=== PATIENT | female | born 1965 | race Caucasian/White ===

== ENCOUNTER 2017-11-09 10:12 | Emergency (ER) | payer BC ==
[2017-11-09 11:19] VITALS: BP 139/63
--- NOTE | 2017-11-09 11:33 | UC ---
Back Pain HPI - HPI Summary HPI Summary: Patient presents with a past medical history of Non-Hodgkin lymphoma, hypogammaglobelemia, and know left sided hydronephrosis. She is currently visiting from [place]. She presents today with left sided flank pain, and fever onset 1 days. Denies chills, nausea, vomiting, abdominal pain, or dysuria - History of Current Complaint Chief Complaint: UCGeneralIllness Stated Complaint: BACK PAIN Time Seen by Provider: 11/09/17 11:05 Hx Obtained From: Patient Hx Last Menstrual Period: No Menes d/t Chemo ?: No Onset/Duration: Gradual Onset, Lasting Days Timing: Constant Severity Initially: Moderate Severity Currently: Moderate Pain Intensity: 4 Character: Dull, Aching Aggravating Factor(s): Nothing Alleviating Factor(s): Nothing Associated Signs And Symptoms: Positive: Negative - Risk Factors AAA Risk Factors: Negative TAD Risk Factors: Negative Cauda Equina Risk Factors: Negative Epidural Abscess Risk Factors: Negative - Allergies/Home Medications Allergies/Adverse Reactions: Allergies Allergy/AdvReac Type Severity Reaction Status Date / Time amoxicillin Allergy Hives Verified 11/09/17 11:05 sulfamethoxazole Allergy Hives Verified 11/09/17 11:05 [From Bactrim] trimethoprim [From Bactrim] Allergy Hives Verified 11/09/17 11:05 Home Medications: Home Medications Acetaminophen [Acetaminophen Extra Strength] 2 tab PO Q6HR 11/09/17 [History Confirmed 11/09/17] Albuterol HFA INHALER* [Ventolin HFA Inhaler*] 2 puff INH Q4HR PRN 11/09/17 [ History Confirmed 11/09/17] Aspirin EC TAB* [Ecotrin EC Low Dose 81 MG*] 1 tab PO DAILY 11/09/17 [History Confirmed 11/09/17] Beclomethasone 80 MCG MDI(NF) [Qvar 80 MCG MDI(NF)] 2 puff INH BID 11/09/17 [ History Confirmed 11/09/17] Carvedilol TAB* [Coreg TAB*] 3.125 mg PO BID 11/09/17 [History Confirmed ] Dexlansoprazole [Dexilant] 60 mg PO DAILY 11/09/17 [History Confirmed 11/09/17] Hizentra 1 inj SUBCUT WEEKLY 11/09/17 [History Confirmed 11/09/17] Montelukast Sodium TAB* [Singulair 10 MG TAB*] 10 mg PO DAILY 11/09/17 [History Confirmed 11/09/17] Olmesartan Medoxomil [Benicar] 10 mg PO DAILY 11/09/17 [History Confirmed ] Rosuvastatin Calcium [Crestor] 5 mg PO DAILY 11/09/17 [History Confirmed ] PMH/Surg Hx/FS Hx/Imm Hx Previously Healthy: Yes Endocrine History: Dyslipidemia Cardiovascular History: Hypertension - renal tumor Respiratory History: Asthma Other GI/ History: left sided hyronephrosis, hypogammaglobilemia. - Surgical History Surgical History: Yes Surgery Procedure, Year, and Place: Scar tissue removed left kidney area x 3. - Family History Known Family History: Positive: Other - bladder cancer - Social History Occupation: Employed Full-time Lives: Alone Alcohol Use: None Substance Use Type: None Smoking Status (MU): Never Smoked Tobacco Review of Systems Constitutional: Negative Skin: Negative Eyes: Negative ENT: Negative Respiratory: Negative Cardiovascular: Negative Gastrointestinal: Negative Genitourinary: Negative, Other - left flank pain Motor: Negative Neurovascular: Negative Musculoskeletal: Negative Neurological: Negative Psychological: Negative Is Patient Immunocompromised?: No All Other Systems Reviewed And Are Negative: Yes Physical Exam Triage Information Reviewed: Yes Appearance: Well-Appearing Vital Signs: Initial Vital Signs Temp 101.4 F 11/09/17 11:09 Pulse 102 11/09/17 11:09 Resp 16 11/09/17 11:09 BP 139/63 11/09/17 11:09 Pulse Ox 99 11/09/17 11:09 Eye Exam: Normal ENT Exam: Normal Neck exam: Normal Respiratory Exam: Normal Cardiovascular Exam: Normal Abdominal Exam: Normal Skin Exam: Normal Back Pain Course/Dx - Course Course Of Treatment: Patient presents withmultiple co-morbities see PMH. She recently drove from [place] to [place] to ep her parents. She presents with complaints of fever, and flank pain. VSS reveal eleveted pulse, and fever findings consistent with SIRS, and also patient is at risk for PE. I do not the the ability to work this patient up in the walk in and was sent directly to the ER. Report called to Jennifer. Patient stable at discharge. - Differential Dx/Diagnosis Differential Diagnosis/HQI/PQRI: Other - fever flank pain Provider Diagnoses: fever. flank pain Discharge - Sign-Out/Discharge Documenting (check all that apply): Discharge/Admit/Transfer - Discharge Plan Condition: Stable Disposition: HOME Patient Education Materials: Fever in Adults (ED), Flank Pain (ED) Referrals: No Primary Care Phys,NOPCP [Primary Care Provider] - Additional Instructions: I recommend she to directly to the ER. - Billing Disposition and Condition Condition: STABLE Disposition: HOME
== END 2017-11-09 11:30 | disposition home or self-care (01) ==
LOC: UCEAST 10:12
DX: M54.9 Dorsalgia, unspecified (principal); R50.9 Fever, unspecified; E78.5 Hyperlipidemia, unspecified; I10 Essential (primary) hypertension; J45.909 Unspecified asthma, uncomplicated; D80.1 Nonfamilial hypogammaglobulinemia; Z85.51 Personal history of malignant neoplasm of bladder; Z88.0 Allergy status to penicillin; Z88.2 Allergy status to sulfonamides
CPT/HCPCS: 99202; G0463

== ENCOUNTER 2017-11-09 11:49 | Emergency (ER) | payer BC ==
--- NOTE | 2017-11-09 12:41 | RAD ---
INDICATION: Left flank pain. History of lymphoma. History of renal tumor. COMPARISON: None TECHNIQUE: Noncontrast axial source images were acquired from the level hemidiaphragms to the symphysis pubis as part of CT imaging for renal stone. Lung bases: There is nodular pleural-based infiltrative change left lung base. There are emphysematous changes. Suggest correlation with prior radiographs and/or a follow-up chest x-ray. Liver: The liver is enlarged. Noncontrast imaging shows no evidence of a hepatic mass or ductal dilatation. Gallbladder: There are no calcified gallstones. There is no evidence of wall thickening or pericholecystic fluid.. Spleen: The spleen is normal in size. The noncontrast CT appearance is normal. Pancreas: Noncontrast imaging shows no pancreatic mass or ductal dilitation. Evaluation is limited without oral and intravenous contrast Adrenal glands: No masses are identified. Kidneys/Bladder: There is no definitive CT evidence of nephrolithiasis. There is moderate left-sided hydronephrosis, however. There is a size discrepancy between the 2 kidneys with the left kidney being smaller than the right. The right kidney may be mildly hypertrophied. Adenopathy: There is no evidence of intraperitoneal or retroperitoneal adenopathy. Evaluation is limited without oral or contrast. Fluid collections: There water density masses in the minor pelvis bilaterally. These appear contiguous with the S1-S2 sacral foramina bilaterally. These are likely large perineural cysts and should be reviewed in conjunction with any prior external imaging. Vessels: The aorta and iliac vessels are normal in caliber. There are no significant atherosclerotic changes. The IVC appears normal Pelvic organs: The uterus and adnexa appear normal. The uterus is retroflexed GI tract: There are no specific CT abnormalities of the GI tract on noncontrast evaluation. There is moderate retained stool throughout the colon. Soft tissues: No soft tissue abnormalities of the extraperitoneal abdomen or pelvis are identified. Osseous structures: There are no acute osseous findings. There is mild levoscoliosis. IMPRESSION: 1. Nonspecific, pleural-based areas of nodularity left lung base. Suggest follow-up. 2. Hepatomegaly. 3. Mildly atrophic left kidney. Moderate left-sided hydronephrosis. Hypertrophied right kidney No CT evidence of urolithiasis. Suggest correlation with prior renal history 4. Presumed perineural cysts. Suggest correlation with prior imaging. 5. Retained stool.
[2017-11-09 12:43] LABS: ABS Basophils 0 10^3/ul (0-0.2); ABS Eosinophils 0 10^3/ul (0-0.6); ABS Lymphocytes 1.9 10^3/ul (1.0-4.8); ABS Monocytes 1.1 10^3/ul (0-0.8); ABS Neutrophils 10.1 10^3/ul (1.5-7.7); ABS Nucleated RBC 0 10^3/ul; Eosinophil % 0.4 % (0-6); Hematocrit 37 % (35-47); Hemoglobin 12.3 g/dl (12.0-16.0); Lymphocyte % 14.6 % (25-47); Mean Corpuscular HGB Conc 33 g/dl (31-36); Mean Corpuscular Hemoglobin 29 pg (27-31); Mean Corpuscular Volume 87 fL (80-97); Mean Platelet Volume 7.2 um3 (7.4-10.4); Nucleated Red Blood Cells % 0.1; Platelet Count 273 10^3/ul (150-450); Red Blood Count 4.27 10^6/ul (4.0-5.4); Red Cell Distribution Width 14 % (10.5-15); White Blood Count 13.2 10^3/ul (3.5-10.8)
[2017-11-09 12:51] LABS: INR 1.01 (0.77-1.02)
[2017-11-09 13:36] LABS: Urine Appearance Clear; Urine Blood 1+ (Negative); Urine Color Straw; Urine Ketones Negative (Negative); Urine Protein Negative (Negative); Urine Specific Gravity 1.004 (1.010-1.030); Urine Urobilinogen Negative (Negative)
[2017-11-09 13:50] VITALS: BP 134/79
[2017-11-09] MEDS ORDERED: Levofloxacin TAB* 500 MG PO ONE (14:10)
--- NOTE | 2017-11-09 14:15 | ED ---
Xin Collazo Gabriel, scribed for Galo Cai on 11/09/17 at 1208 . Back Pain - HPI Summary HPI Summary: This patient is a 52 year old F presenting to [facility] accompanied by her father with a chief complaint of left flank pain that began at 0100 this morning. The patient rates the pain 5/10 in severity. Patient reports fever. Patient denies hematuria and rash. Pt lives in [place] and was seen there 4 weeks ago for possible kidney stone. There was blood in her urine but CT showed no stone. - History of Current Complaint Chief Complaint: EDFlankPain Stated Complaint: FLANK/BACK PAIN/FEVER Time Seen by Provider: 11/09/17 12:00 Hx Obtained From: Patient Hx Last Menstrual Period: No Menes d/t Chemo Onset/Duration: Lasting Hours, Still Present Onset/Duration: Still Present Timing: Constant Back Pain Location: Is Discrete @ - l flank Severity Initially: Moderate Severity Currently: Moderate Pain Intensity: 5 Pain Scale Used: 0-10 Numeric Associated Signs And Symptoms: Positive: Negative - hematuria, rash,, Fever - Allergies/Home Medications Allergies/Adverse Reactions: Allergies Allergy/AdvReac Type Severity Reaction Status Date / Time amoxicillin Allergy Hives Verified 11/09/17 11:52 sulfamethoxazole Allergy Hives Verified 11/09/17 11:52 [From Bactrim] trimethoprim [From Bactrim] Allergy Hives Verified 11/09/17 11:52 Home Medications: Home Medications Dexlansoprazole (NF) [Dexilant (NF)] 60 mg PO DAILY 11/09/17 [History Confirmed 11/09/17] Olmesartan (NF) [Benicar (NF)] 10 mg PO DAILY 11/09/17 [History Confirmed ] Rosuvastatin (NF) [Crestor (NF)] 5 mg PO DAILY 11/09/17 [History Confirmed 11/09] PMH/Surg Hx/FS Hx/Imm Hx Cardiovascular History: Reports: Hx Hypertension Respiratory History: Reports: Hx Asthma Denies: Hx Chronic Obstructive Pulmonary Disease (COPD), Hx Cystic Fibrosis GI History: Denies: Hx Gastrointestinal Bleed, Hx Hiatal Hernia History: Denies: Hx Benign Prostatic Hyperplasia Sensory History: Reports: Hx Contacts or Glasses Opthamlomology History: Reports: Hx Contacts or Glasses Neurological History: Denies: Hx CVA, Hx Dementia - Cancer History Cancer Type, Location and Year: Non-hodgkins Lymphoma - remission 2003; Tumor in kidney area. - Surgical History Surgery Procedure, Year, and Place: Scar tissue removed left kidney area x 3. Infectious Disease History: No Infectious Disease History: Denies: Traveled Outside the US in Last 30 Days - Family History Known Family History: Positive: Hypertension, Other - bladder cancer - Social History Lives: With Family Alcohol Use: None Substance Use Type: Reports: None Smoking Status (MU): Never Smoked Tobacco Review of Systems Positive: Fever Positive: flank pain. Negative: hematuria Negative: Rash All Other Systems Reviewed And Are Negative: Yes Physical Exam - Summary Physical Exam Summary: Appearance: Well appearing, no pain distress Skin: warm, dry, reflects adequate perfusion Head/face: normal Eyes: EOMI, CLAUDIA ENT: normal Neck: supple, non-tender Respiratory: CTA, breath sounds present Cardiovascular: RRR, pulses symmetrical ~ Abdomen: non-tender, soft Back: mild TTP in the left flank Bowel: present Musculoskeletal: normal, strength/ROM intact Neuro: normal, sensory motor intact, A&Ox3 Triage Information Reviewed: Yes Vital Signs On Initial Exam: Initial Vitals Temp Pulse Resp BP Pulse Ox 98.1 F 98 14 135/79 100 11/09/17 11:52 11/09/17 11:52 11/09/17 11:52 11/09/17 11:52 11/09/17 11:52 Vital Signs Reviewed: Yes Diagnostics - Vital Signs Vital Signs Temp Pulse Resp BP Pulse Ox 11/09/17 11:52 98.1 F 98 14 135/79 100 - Laboratory Lab Results: Lab Results 11/09/17 11/09/17 11/09/17 Range/Units 12:33 12:33 12:33 WBC 13.2 H (3.5-10.8) 10^3/ul RBC 4.27 (4.0-5.4) 10^6/ul Hgb 12.3 (12.0-16.0) g/dl Hct 37 (35-47) % MCV 87 (80-97) fL MCH 29 (27-31) pg MCHC 33 (31-36) g/dl RDW 14 (10.5-15) % Plt Count 273 (150-450) 10^3/ul MPV 7.2 L (7.4-10.4) um3 Neut % (Auto) 76.6 (38-83) % Lymph % (Auto) 14.6 L (25-47) % Pettis % (Auto) 8.2 H (0-7) % Eos % (Auto) 0.4 (0-6) % Baso % (Auto) 0.2 (0-2) % Absolute Neuts (auto) 10.1 H (1.5-7.7) 10^3/ul Absolute Lymphs (auto) 1.9 (1.0-4.8) 10^3/ul Absolute Monos (auto) 1.1 H (0-0.8) 10^3/ul Absolute Eos (auto) 0 (0-0.6) 10^3/ul Absolute Basos (auto) 0 (0-0.2) 10^3/ul Absolute Nucleated RBC 0 10^3/ul Nucleated RBC % 0.1 INR (Anticoag Therapy) 1.01 (0.77-1.02) APTT 26.4 (26.0-36.3) seconds Sodium 139 (139-145) mmol/L Potassium 4.3 (3.5-5.0) mmol/L Chloride 102 (101-111) mmol/L Carbon Dioxide 28 (22-32) mmol/L Anion Gap 9 (2-11) mmol/L BUN 15 (6-24) mg/dL Creatinine 0.58 (0.51-0.95) mg/dL Est GFR ( Amer) 141.5 (>60) Est GFR (Non-Af Amer) 110.0 (>60) BUN/Creatinine Ratio 25.9 H (8-20) Glucose 89 (70-100) mg/dL Calcium 9.3 (8.6-10.3) mg/dL Total Bilirubin 0.50 (0.2-1.0) mg/dL AST 21 (13-39) U/L ALT 17 (7-52) U/L Alkaline Phosphatase 94 (34-104) U/L Total Protein 7.7 (6.4-8.9) g/dL Albumin 4.2 (3.2-5.2) g/dL Globulin 3.5 (2-4) g/dL Albumin/Globulin Ratio 1.2 (1-3) Lipase 39 (11.0-82.0) U/L Beta HCG, Quant 3.54 mIU/mL Urine Color Urine Appearance Urine pH (5-9) Ur Specific [place] (1.010-1.030) Urine Protein (Negative) Urine Ketones (Negative) Urine Blood (Negative) Urine Nitrate (Negative) Urine Bilirubin (Negative) Urine Urobilinogen (Negative) Ur Leukocyte Esterase (Negative) Urine WBC (Auto) (Absent) Urine RBC (Auto) (Absent) Urine Bacteria (Absent) Urine Glucose (Negative) 11/09/17 Range/Units 13:21 WBC (3.5-10.8) 10^3/ul RBC (4.0-5.4) 10^6/ul Hgb (12.0-16.0) g/dl Hct (35-47) % MCV (80-97) fL MCH (27-31) pg MCHC (31-36) g/dl RDW (10.5-15) % Plt Count (150-450) 10^3/ul MPV (7.4-10.4) um3 Neut % (Auto) (38-83) % Lymph % (Auto) (25-47) % Pettis % (Auto) (0-7) % Eos % (Auto) (0-6) % Baso % (Auto) (0-2) % Absolute Neuts (auto) (1.5-7.7) 10^3/ul Absolute Lymphs (auto) (1.0-4.8) 10^3/ul Absolute Monos (auto) (0-0.8) 10^3/ul Absolute Eos (auto) (0-0.6) 10^3/ul Absolute Basos (auto) (0-0.2) 10^3/ul Absolute Nucleated RBC 10^3/ul Nucleated RBC % INR (Anticoag Therapy) (0.77-1.02) APTT (26.0-36.3) seconds Sodium (139-145) mmol/L Potassium (3.5-5.0) mmol/L Chloride (101-111) mmol/L Carbon Dioxide (22-32) mmol/L Anion Gap (2-11) mmol/L BUN (6-24) mg/dL Creatinine (0.51-0.95) mg/dL Est GFR ( Amer) (>60) Est GFR (Non-Af Amer) (>60) BUN/Creatinine Ratio (8-20) Glucose (70-100) mg/dL Calcium (8.6-10.3) mg/dL Total Bilirubin (0.2-1.0) mg/dL AST (13-39) U/L ALT (7-52) U/L Alkaline Phosphatase (34-104) U/L Total Protein (6.4-8.9) g/dL Albumin (3.2-5.2) g/dL Globulin (2-4) g/dL Albumin/Globulin Ratio (1-3) Lipase (11.0-82.0) U/L Beta HCG, Quant mIU/mL Urine Color Straw Urine Appearance Clear Urine pH 7.0 (5-9) Ur Specific [place] 1.004 L (1.010-1.030) Urine Protein Negative (Negative) Urine Ketones Negative (Negative) Urine Blood 1+ A (Negative) Urine Nitrate Negative (Negative) Urine Bilirubin Negative (Negative) Urine Urobilinogen Negative (Negative) Ur Leukocyte Esterase 3+ A (Negative) Urine WBC (Auto) 2+(11-20/hpf) A (Absent) Urine RBC (Auto) Trace(0-2/hpf) (Absent) Urine Bacteria Absent (Absent) Urine Glucose Negative (Negative) Result Diagrams: 11/09/17 12:33 11/09/17 12:33 Lab Statement: Any lab studies that have been ordered have been reviewed, and results considered in the medical decision making process. - CT CT ABD/Pelvis CT Interpretation Completed By: Radiologist - 1. Nonspecific, pleural-based areas of nodularity left lung base. Suggest follow-up. 2. Hepatomegaly. 3. Mildly atrophic left kidney. Moderate left-sided hydronephrosis. Hypertrophied right kidney No CT evidence of urolithiasis. Suggest correlation with prior renal history 4. Presumed perineural cysts. Suggest correlation with prior imaging. 5. Retained stool. ED physician has reviewed this radiology report. Back Pain Course/Dx - Course Assessment/Plan: This patient is a 52 year old F presenting to [facility] accompanied by her father with a chief complaint of left flank pain that began at 0100 this morning. The patient rates the pain 5/10 in severity. Patient reports fever. Patient denies hematuria and rash. Pt lives in [place] and was seen there 4 weeks ago for possible kidney stone. There was blood in her urine but CT showed no stone. CT ABD/Pelvis reveals, per radiologist, 1. Nonspecific, pleural-based areas of nodularity left lung base. Suggest follow- up. 2. Hepatomegaly. 3. Mildly atrophic left kidney. Moderate left-sided hydronephrosis. Hypertrophied right. kidney No CT evidence of urolithiasis. Suggest correlation with prior renal history. 4. Presumed perineural cysts. Suggest correlation with prior imaging. 5. Retained stool. Blood work obtained. UA was positive for UTI. In the ED course the patient was given levaquin. Patient will be discharged with prescription for levaquin and follow up from urology. The patient is agreeable with this plan. - Diagnoses Differential Diagnosis/HQI/PQRI: Positive: Renal Colic, Strain, Other - uti Provider Diagnoses: UTI (urinary tract infection) Discharge - Sign-Out/Discharge Documenting (check all that apply): Discharge/Admit/Transfer - Discharge Plan Condition: Stable Disposition: HOME Prescriptions: Ibuprofen TAB* [Motrin TAB* 600 MG] 600 mg PO Q8H PRN #15 tab PRN Reason: Pain Levofloxacin TAB* [Levaquin TAB*] 500 mg PO DAILY #4 tab Patient Education Materials: Urinary Tract Infection in Women (DC) Additional Instructions: Please see your urologist in [place] [facility]. RETURN TO THE ER FOR ANY NEW OR WORSENING SYMPTOMS - Billing Disposition and Condition Condition: STABLE Disposition: HOME The documentation as recorded by the Xin don Gabriel accurately reflects the service I personally performed and the decisions made by , Galo Cai.
[2017-11-09] MEDS ORDERED: Acetaminophen TAB* 325 MG PO ONE (14:20)
[2017-11-09] MEDS ORDERED: Acetaminophen TAB* 325 MG ONE (14:20)
== END 2017-11-09 14:24 | disposition home or self-care (01) ==
LOC: ED 11:49
DX: N39.0 Urinary tract infection, site not specified (principal); N13.30 Unspecified hydronephrosis; N26.1 Atrophy of kidney (terminal); R91.1 Solitary pulmonary nodule; R16.0 Hepatomegaly, not elsewhere classified; Z88.3 Allergy status to other anti-infective agents; Z88.0 Allergy status to penicillin
CPT/HCPCS: 36415; 74176; 80053; 81003; 81015; 83690; 84702; 85025; 85610; 85730; 87086; 99283; A9270-GY

== ENCOUNTER 2018-12-01 09:02 | Emergency (ER) | payer BC ==
[2018-12-01 09:23] LABS: ABS Lymphocytes 1.3 10^3/ul (1.0-4.8); ABS Monocytes 0.7 10^3/ul (0-0.8); ABS Neutrophils 4.5 10^3/ul (1.5-7.7); Eosinophil % 0.6 %; Hematocrit 39 % (35-47); Hemoglobin 13.3 g/dL (12.0-16.0); Lymphocyte % 19.8 %; Mean Corpuscular HGB Conc 34 g/dL (31-36); Mean Corpuscular Hemoglobin 31 pg (27-31); Mean Corpuscular Volume 90 fL (80-97); Platelet Count 190 10^3/uL (150-450); Red Blood Count 4.36 10^6 /uL (3.70-4.87); Red Cell Distribution Width 13 % (10-15); White Blood Count 6.5 10^3/uL (3.5-10.8)
--- NOTE | 2018-12-01 09:25 | ED ---
Respiratory - HPI Summary HPI Summary: Patient is a 53-year-old female presenting to the ED with concern for pneumonia. She states she has an immune deficiency and has recurrent pneumonias. She had a fever of approximately 101 yesterday, but denies fevers currently. She denies any sweats or chills. She is endorsing a right-sided mid back pain/tenderness which is consistent with her previous pneumonias. She does endorse cough with production over the past few days, this is mild and clear mucus. - History of Current Complaint Chief Complaint: EDFever Stated Complaint: FEVER, FLANK PAIN Time Seen by Provider: 12/01/18 09:09 Hx Obtained From: Patient Onset/Duration: Sudden Onset Timing: Constant Initial Severity: Mild Current Severity: None Pain Intensity: 4 Character: Cough (Productive) Sputum Amount: Scant Sputum Color: Clear Aggravating Factor(s): URI Alleviating Factor(s): Nothing Associated Signs and Symptoms: Negative - Risk Factors Status Asthmaticus Risk Factors: Negative Pulmonary Embolism Risk Factors: Negative Cardiac Risk Factors: Negative Pseudomonas Risk Factors: Negative Tuberculosis Risk Factors: Negative - Allergy/Home Medications Allergies/Adverse Reactions: Allergies Allergy/AdvReac Type Severity Reaction Status Date / Time amoxicillin Allergy Hives Verified 12/01/18 09:20 sulfamethoxazole Allergy Hives Verified 12/01/18 09:20 [From Bactrim] trimethoprim [From Bactrim] Allergy Hives Verified 12/01/18 09:20 PMH/Surg Hx/FS Hx/Imm Hx Previously Healthy: Yes Cardiovascular History: Reports: Hx Hypertension Respiratory History: Reports: Hx Asthma Denies: Hx Chronic Obstructive Pulmonary Disease (COPD), Hx Cystic Fibrosis GI History: Denies: Hx Gastrointestinal Bleed, Hx Hiatal Hernia History: Denies: Hx Benign Prostatic Hyperplasia Sensory History: Reports: Hx Contacts or Glasses Opthamlomology History: Reports: Hx Contacts or Glasses Neurological History: Denies: Hx CVA, Hx Dementia - Cancer History Cancer Type, Location and Year: Non-hodgkins Lymphoma - remission 2003; Tumor in kidney area. - Surgical History Surgery Procedure, Year, and Place: Scar tissue removed left kidney area x 3. - Immunization History Hx Pertussis Vaccination: No Immunizations Up to Date: Yes Infectious Disease History: No Infectious Disease History: Denies: Traveled Outside the [place] in Last 30 Days - Family History Known Family History: Positive: Hypertension, Other - bladder cancer - Social History Alcohol Use: None Substance Use Type: Reports: None Smoking Status (MU): Never Smoked Tobacco Review of Systems Positive: Fever - yesterday. Negative: Chills, Fatigue, Skin Diaphoresis Negative: Palpitations, Chest Pain Positive: Shortness Of Breath, Cough Genitourinary: Negative Positive: no symptoms reported, see HPI Negative: Arthralgia, Myalgia Negative: Rash, Bruising Neurological: Negative All Other Systems Reviewed And Are Negative: Yes Physical Exam Triage Information Reviewed: Yes Vital Signs On Initial Exam: Initial Vitals Temp Pulse Resp BP Pulse Ox 98.1 F 96 16 117/87 100 12/01/18 09:05 12/01/18 09:05 12/01/18 09:05 12/01/18 09:05 12/01/18 09:05 Vital Signs Reviewed: Yes Appearance: Positive: Well-Appearing, Well-Nourished Skin: Positive: Warm, Skin Color Reflects Adequate Perfusion Head/Face: Positive: Normal Head/Face Inspection Eyes: Positive: EOMI, Conjunctiva Clear Neck: Positive: Supple, Nontender, No Lymphadenopathy Respiratory/Lung Sounds: Positive: Clear to Auscultation, Breath Sounds Present Cardiovascular: Positive: RRR, Pulses are Symmetrical in both Upper and Lower Extremities Musculoskeletal: Positive: Normal Neurological: Positive: Sensory/Motor Intact, Alert, Oriented to Person Place, Time Psychiatric: Positive: Affect/Mood Appropriate Diagnostics - Vital Signs Vital Signs Temp Pulse Resp BP Pulse Ox 12/01/18 09:05 98.1 F 96 16 117/87 100 - Laboratory Result Diagrams: 12/01/18 09:16 12/01/18 09:16 Lab Statement: Any lab studies that have been ordered have been reviewed, and results considered in the medical decision making process. Disposition - Course Course Of Treatment: Patient's evaluated for a possible pneumonia. She states she has had a cough with clear mucus production. She is endorsing right sided mid back pain which began last evening and remains consistent. On physical exam , lungs are CTA. RRR. xray obtained. labs obtained which show an elevated CRP with a normal WBC. Patient remains asymptomatic at this time. Xray shows .9cm nodule. Patient given report/disc sent with patient and she will follow up with her PCP to obtain a CT outpatient. VS stable and patient is afebrile. - Differential Dx - Cardiopulmonary Differential Diagnoses - Cardiopulmonary: Other - pna, cough, viral illness - Diagnoses Provider Diagnoses: Pulmonary nodule Discharge - Sign-Out/Discharge Documenting (check all that apply): Patient Departure Patient Received Moderate/Deep Sedation with Procedure: No - Discharge Plan Condition: Stable Disposition: HOME Patient Education Materials: Pulmonary Nodules (ED) Referrals: No Primary Care Phys,NOPCP [Primary Care Provider] - Additional Instructions: Please follow up with your PCP regarding the small lung nodule found on xray If you develop any worsening pain or symptoms, return to the ED - Billing Disposition and Condition Condition: STABLE Disposition: Home
[2018-12-01 09:40] LABS: Albumin 4.2 g/dL (3.2-5.2); Albumin/Globulin Ratio 1.3 (1-3); BUN/Creatinine Ratio 22.2 (8-20); Calcium 9.6 mg/dL (8.6-10.3); EGFR African American 120.5 (>60); EGFR Non-African American 99.6 (>60); Globulin 3.3 g/dL (2-4); Potassium 3.5 mmol/L (3.5-5.0); Total Bilirubin 0.5 mg/dL (0.2-1.0); Total Protein 7.5 g/dL (6.4-8.9)
[2018-12-01 10:36] LABS: CRP High Sensitivity 91.37 mg/L (<2.00)
[2018-12-01 10:53] VITALS: BP 123/71
== END 2018-12-01 10:52 | disposition home or self-care (01) ==
LOC: ED 09:02
DX: R91.1 Solitary pulmonary nodule (principal); I10 Essential (primary) hypertension
CPT/HCPCS: 36415; 71046; 80053; 85025; 86141; 99283